=== PATIENT | male | born 1960 ===

== ENCOUNTER 2017-01-30 09:58 | Day surgery (SDC) | payer BC ==
[~2017-01-30 09:58] MED LIST: Buffered Lidocaine 0.9% SYRIN* 5 ML/SYR SYRINGE INTRADERM ONE; Dexamethasone TAB* 4 MG PO ONE; Famotidine IV* 10 MG/ML 2 ML (20 mg) IV ONE
[2017-01-30] MEDS ORDERED: Famotidine IV* 10 MG/ML 2 ML (20 mg) ONE (10:19)
[2017-01-30] MEDS ORDERED: ceFAZolin 2 GM PREMIX (*) 2 GM/50 ML BAG IVPB ONE (10:19)
[2017-01-30] MEDS ORDERED: Buffered Lidocaine 0.9% SYRIN* 5 ML/SYR SYRINGE ONE (10:19)
[2017-01-30] MEDS ORDERED: Dexamethasone IV* 4 MG/ML 1 ML (4 MG) ONE (10:19)
[2017-01-30] MEDS ORDERED: fentaNYL* 50 MCG/ML 2 ML VIAL (100 MCG VIAL) ONE (11:37)
[2017-01-30] MEDS ORDERED: Midazolam* 1 MG/ML 10 ML VIAL (10 MG) ONE (11:37)
[2017-01-30] MEDS ORDERED: Propofol* 10 MG/ML 20 ML BTL IV PUSH ONE (11:38)
[2017-01-30] MEDS ORDERED: Ondansetron INJ* 2 MG/ML VIAL ONE (11:38)
[2017-01-30] MEDS ORDERED: Lidocaine 1% MPF wEPI 200,000* 30 ML SDV ONE (11:53)
[2017-01-30] MEDS ORDERED: Methylene Blue 0.5 %* 50 MG/10 ML AMP IV ONE ×2 (13:08→13:12)
[2017-01-30] MEDS ORDERED: Mineral Oil Sterile, TOPICAL* 25 ML BTL ONE (13:08)
[2017-01-30 14:31] VITALS: BP 125/80
[2017-01-30] MEDS ORDERED: Acetaminophen TAB* 325 MG ONE (14:39)
== END 2017-01-30 14:45 | disposition home or self-care (01) ==
LOC: OR 09:58
PROVIDERS: ATTEND Plastic Surgery
DX: C44.329 Squamous cell carcinoma of skin of other parts of face (principal); Z80.8 Family history of malignant neoplasm of other organs or systems
CPT/HCPCS: 88305; 88331; 88332; A9270-GY; J0690; J1100; J2001; J2250; J2405; J2704; J3010